=== PATIENT | female | born 1990 | race Caucasian/White ===

== ENCOUNTER 2016-08-22 10:03 | Outpatient (CLI) ==
[2015-08-20 11:33] VITALS: BMI 43.8
[2016-08-22 12:32] LABS: BASOPHILS % (AUTO) 0.4 % (0.0-3.0); EOSINOPHILS # (AUTO) 0.1 K/ul (0.0-0.7); EOSINOPHILS % (AUTO) 1.5 % (0.0-7.0); HEMATOCRIT 43.2 % (37.0-47.0); HEMOGLOBIN 14.1 g/dl (12.0-16.0); IMMATURE GRANULOCYTE % (AUTO) 0.1 % (0.0-5.0); LYMPHOCYTES # (AUTO) 1.7 K/uL (0.60-3.4); LYMPHOCYTES % (AUTO) 23.1 (10.0-50.0); MEAN CORPUSCULAR HEMOGLOBIN 28.2 pg (27.0-31.0); MEAN CORPUSCULAR HGB CONC 32.6 (31.8-35.4); MEAN CORPUSCULAR VOLUME 86.4 fl (81.0-99.0); MONOCYTES # (AUTO) 0.4 K/uL (0.4-2.0); MONOCYTES % (AUTO) 5.7 (0-10); NEUTROPHILS # (AUTO) 5.1 K/ul (2.0-6.9); NEUTROPHILS % (AUTO) 69.2; PLATELET COUNT 160 10^3/uL (140-440); WHITE BLOOD COUNT 7.32 K/ul (4.6-10.2)
[2016-08-22 13:13] LABS: ALBUMIN/GLOBULIN RATIO 1.14; ANION GAP 13.1; BILIRUBIN,TOTAL 0.45 mg/dL (0.00-1.20); BUN/CREATININE RATIO 17.94; CALCIUM 9.6 mg/dL (8.2-10.2); CHOL/HDL RATIO 2.8 (4.5-5.5); CREATININE 0.78 mg/dL (0.60-1.30); POTASSIUM 4.1 mmol/L (3.5-5.10); TOTAL PROTEIN 7.5 g/dL (6.4-8.2)
== END 2016-08-22 10:04 | disposition home or self-care (01) ==
LOC: LAB 10:03
PROVIDERS: ATTEND Nurse Practitioner Family
DX: G43.111 Migraine with aura, intractable, with status migrainosus (principal)
CPT/HCPCS: 36415; 80053; 80061; 84439; 84443; 85025

== ENCOUNTER 2016-08-27 08:53 | Outpatient (CLI) ==
[2015-08-20 11:33] VITALS: BMI 43.8
--- NOTE | 2016-08-27 12:02 | MRI ---
EXAM: MRI brain without IV contrast. DATE: 27 August 2016. HISTORY: Migraine headaches with aura.. TECHNIQUE: Sagittal T1W, axial T2W, axial FLAIR, axial T1W, axial DWI, and coronal T2W GRE sequence s of the brain were obtained using 1.2 Lucy magnet. No IV contrast. COMPARISON: None. FINDINGS: The ventricles, cisterns, and subarachnoid spaces are normal in size and configuration. No midline shift, mass effect or abnormal extra-axial fluid collection is apparent. No acute infarc t, hemorrhage or neoplasm is identified. The butcher - white matter differentiation is normal. The 7t h/8th cranial nerve complexes, cerebellopontine angles, brainstem, and visible cervical spinal cord are normal. There is no cerebellar tonsillar ectopia. The pituitary gland is small in size, with C SF filling part of the pituitary fossa Corpus callosum is normal in size and configuration. Flow v oids are present in the major intracranial arteries and in the dural venous sinuses. No aneurysm, A VM or dural venous sinus thrombosis is apparent. Distortion at the anterior margin of the globe of each eye is likely due to mascara. No other orbit abnormality is identified. The mastoid air cells are unremarkable. There is no acute sinusitis. Minor adenoid tissue prominence is noted. No neck mass or lymphadenopathy is detected. No calvarial neoplasm or acute fracture is evident. IMPRESSIONS: 1. Normal unenhanced brain. No acute infarct, hemorrhage, mass or hydrocephalus. 2. Small pituitary gland. No pituitary lesion. 3. Minor adenoid hypertrophy appears benign.
== END 2016-08-27 08:54 | disposition home or self-care (01) ==
LOC: RAD 08:53
PROVIDERS: ATTEND Nurse Practitioner Family
DX: G43.111 Migraine with aura, intractable, with status migrainosus (principal)

== ENCOUNTER 2017-02-03 14:49 | Outpatient (CLI) ==
[2015-08-20 11:33] VITALS: BMI 43.8
--- NOTE | 2017-02-03 15:21 | DI ---
EXAM: CHEST FRONTAL AND LATERAL VIEWS HISTORY: Cough. COMPARISON: None FINDINGS: Heart size and mediastinal contour within normal limits. No acute infiltrates. Normal vascularity with no pleural fluid or pneumothorax. The bony thorax has no acute finding. IMPRESSION: No acute process.
[2017-02-03 15:22] LABS: BASOPHILS % (AUTO) 0.5 % (0.0-3.0); EOSINOPHILS # (AUTO) 0.1 K/ul (0.0-0.7); EOSINOPHILS % (AUTO) 1.7 % (0.0-7.0); HEMATOCRIT 41.8 % (37.0-47.0); HEMOGLOBIN 14.2 g/dl (12.0-16.0); IMMATURE GRANULOCYTE % (AUTO) 0.4 % (0.0-5.0); LYMPHOCYTES % (AUTO) 26.1 (10.0-50.0); MEAN CORPUSCULAR HEMOGLOBIN 29.4 pg (27.0-31.0); MEAN CORPUSCULAR VOLUME 86.5 fl (81.0-99.0); MONOCYTES # (AUTO) 0.6 K/uL (0.4-2.0); MONOCYTES % (AUTO) 7.5 (0-10); NEUTROPHILS # (AUTO) 4.8 K/ul (2.0-6.9); NEUTROPHILS % (AUTO) 63.8; PLATELET COUNT 146 10^3/uL (140-440); RED BLOOD COUNT 4.83 10^6/ul (4.20-5.40); WHITE BLOOD COUNT 7.55 K/ul (4.6-10.2)
[2017-02-03 16:24] LABS: ALBUMIN 3.9 g/dL (3.4-5.0); ALBUMIN/GLOBULIN RATIO 1.18; ANION GAP 8.8; BILIRUBIN,TOTAL 0.32 mg/dL (0.00-1.20); BUN/CREATININE RATIO 11.84; CALCIUM 9.6 mg/dL (8.2-10.2); CREATININE 0.76 mg/dL (0.60-1.30); POTASSIUM 3.8 mmol/L (3.5-5.10); TOTAL PROTEIN 7.2 g/dL (6.4-8.2)
== END 2017-02-03 14:50 | disposition home or self-care (01) ==
LOC: LAB 14:49
PROVIDERS: ATTEND Nurse Practitioner Family
DX: R05 Cough (principal); R06.02 Shortness of breath
CPT/HCPCS: 36415; 80053; 84439; 84443; 85025; 93005; 93010

== ENCOUNTER 2017-02-12 08:51 | Outpatient (CLI) ==
[2015-08-20 11:33] VITALS: BMI 43.8
== END 2017-02-12 08:52 | disposition home or self-care (01) ==
LOC: CAR 08:51
PROVIDERS: ATTEND Nurse Practitioner Family
DX: R05 Cough (principal); R06.02 Shortness of breath

== ENCOUNTER 2017-04-21 17:37 | Emergency (ER) ==
[2017-04-21 17:46] VITALS: BP 119/82; TEMP 99.3; BMI 37.3
--- NOTE | 2017-04-21 18:17 | ED.PDOC ---
General ED Provider: Dr. CB RODAS JR Chief Complaint: Sore Throat Stated Complaint: onset with mild neck pain on thursday--now has sore throat-- noted white patches on throat yesterday-- dx with strep throat yesterday- -coughed up large amt mucous[ End ]99.3 101 20 97% 119/82 1/10 COMFORTABLE WITH TREATMENT AND NO TESTING THROAT NOT REMARKABLE NO NECK NODES, BUT SORE THROAT LOW GRADE TEMP AND SPOUSE WITH STREP. X 2--gastric sleeve Time Seen by Physician: 18:15 Mode of Arrival: Walk-In Information Source: Patient Exam Limitations: No limitations [facility] and Triage Documentation Reviewed and Agree: No Reviewed sepsis parameters & appropriate labs ordered?: No System Inflammatory Response Syndrome: Not Applicable Sepsis Protocol: For patient's 13 years and over: Temp is 96.8 and below OR 101 and greater Pulse >90 BPM Resp >20/minute Acutely Altered Mental Status Are patient's symptoms suggestive of a new infection, such as: -Pneumonia -Skin, Soft Tissue -Endocarditis -UTI -Bone, Joint Infection -Implantable Device -Acute Abdominal Infection -Wound Infection -Meningitis -Blood Stream Catheter Infection -Unknown System Inflammatory Response Syndrome: Not Applicable Review of Systems - Review Of Systems Constitutional: Reports: Fever, Malaise Eyes: Reports: No symptoms Ears, Nose, Mouth, Throat: Reports: Throat pain Respiratory: Reports: No symptoms Cardiac: Reports: No symptoms GI: Reports: No symptoms : Reports: No symptoms Musculoskeletal: Reports: No symptoms Skin: Reports: No symptoms Neurological: Reports: No symptoms Endocrine: Reports: No symptoms Hematologic/Lymphatic: Reports: No symptoms All Other Systems: Other Past Medical History - Past Medical History Endocrine: Reports: None Cardiovascular: Reports: None Respiratory: Reports: None Hematological: Reports: None Gastrointestinal: Reports: None Genitourinary: Reports: None Neuro/Psych: Reports: None Musculoskeletal: Reports: None Cancer: Reports: None Last Menstrual Period: last week - Surgical History General Surgical History: Reports: Unknown - Family History Family History: Reports: Unknown - Social History Smoking Status: Never smoker Hx Substance Use: No Alcohol Screening: Occasionally Physical Exam - Physical Exam Appearance: Well-appearing Ill-appearing: Mild Pain Distress: Mild Eyes: RANJAN, EOMI, Conjunctiva clear ENT: Ears normal, Nose normal, Oropharynx normal Neck: Supple Respiratory: Airway patent, Breath sounds clear, Breath sounds equal, Respirations nonlabored Cardiovascular: RRR, Pulses normal, No rub, No murmur GI/: Soft, Nontender, No masses, Bowel sounds normal, No Organomegaly Musculoskeletal: Normal strength, ROM intact, No edema, No calf tenderness Skin: Warm, Dry, Normal color Neurological: Sensation intact, Motor intact, Reflexes intact, Cranial nerves intact, Alert, Oriented Psychiatric: Affect appropriate, Mood appropriate Critical Care Note - Critical Care Note Total Time (mins): 0 Course - Course Vital Signs: Temp Pulse Resp BP Pulse Ox 04/21/17 17:43 99.3 F 101 H 20 119/82 97 Departure - Departure Time of Disposition: 18:15 Disposition: HOME SELF-CARE Discharge Problem: Streptococcal sore throat Instructions: Strep Throat (ED) Condition: Good Pt referred to PMD for follow-up: Yes Additional Instructions: WITH SORE THROAT AND FAMILY MEMBER WITH STREP WILL TREAT WITH ANTIBIOTIC BE SURE TO GET PLENTY OF FLUIDS AND AVOID SOCIAL SITUATIONS(WORK) FOR FIRST 24 HOURS OF ANTIBIOTIC KEFLEX FOUR TIMES A DAY FOR TEN DAYS Prescriptions: Cephalexin [Keflex] 500 mg PO QID #40 capsule Fluconazole [Diflucan] 150 mg PO ONCE PRN #1 tablet PRN Reason: YEAST SYMPTOMS Allergies/Adverse Reactions: Allergies No Known Allergies Allergy (Verified 04/21/17 17:47) Home Medications: Ambulatory Orders Multivitamin [Multi-Vitamin Daily] 1 each PO DAILY 02/03/17 Cephalexin [Keflex] 500 mg PO QID #40 capsule 04/21/17 Fluconazole [Diflucan] 150 mg PO ONCE PRN #1 tablet 04/21/17
== END 2017-04-21 18:25 | disposition home or self-care (01) ==
LOC: ED 17:37
DX: J02.0 Streptococcal pharyngitis (principal)
CPT/HCPCS: 99282

== ENCOUNTER 2018-05-06 07:07 | Emergency (ER) ==
[2018-05-06 07:14] VITALS: BP 121/80; TEMP 97.7; BMI 43.8
--- NOTE | 2018-05-06 07:24 | ED.PDOC ---
General ED Provider: Dr. JAMES RINCON Chief Complaint: Sore Throat Stated Complaint: I have a sore throat and LT Ear ache. My children are sick at home, son with Strep and one with RSV. Has cough productive or green colored sputum. Denies chese discomfort. Time Seen by Physician: 07:15 Mode of Arrival: Walk-In Information Source: Patient Primary Care Provider: GRACE GRAHAM Nursing and Triage Documentation Reviewed and Agree: Yes Does patient meet sepsis criteria?: No System Inflammatory Response Syndrome: Not Applicable Sepsis Protocol: For patient's 13 years and over: Temp is 96.8 and below OR 101 and greater Pulse >90 BPM Resp >20/minute Acutely Altered Mental Status Are patient's symptoms suggestive of a new infection, such as: -Pneumonia -Skin, Soft Tissue -Endocarditis -UTI -Bone, Joint Infection -Implantable Device -Acute Abdominal Infection -Wound Infection -Meningitis -Blood Stream Catheter Infection -Unknown EENT Complaint Exam - Ear Complaint/Exam Symptoms Are: Still present Timing: Constant Initial Severity: Moderate Current Severity: Moderate Character: Reports: Aching pain Aggravating: Reports: None Alleviating: Reports: None Associated Signs and Symptoms: Reports: Sore throat. Denies: Ear trauma, Ear swelling, Discharge, Fever, Hearing loss, Bleeding, Headache, URI symptoms, Foreign body sensation, Rash, Pain to external ear, Pain to external face Related History: Denies: Similar Episode Ear Surgical History: None Vesicles to External Pinna: No Vesicles to Tragus: No TMJ Tenderness: None Mastoid Tenderness: None Tragal Tenderness: None External Canal: Normal Material in Canal: Absent: Cerumen, Discharge, Blood Tympanic Membrane: Erythema, Bulging, Dullness Differential Diagnoses: Serous Otitis - Throat Complaint/Exam Onset/Duration: 2 days Symptoms Are: Still present Timimg: Constant Initial Severity: Moderate Current Severity: Moderate Aggravating: Reports: None Alleviating: Reports: None Associated Signs and Symptoms: Reports: Nasal congestion, Ear drainage (Lt ear ache). Denies: Fever, Dysphagia, Drooling, Foreign body sensation, Chills, Cough, Wheezing, Hoarseness, Sinus discomfort, Difficulty breathing, Lethargy, Irritability, Decreased activity, Vomiting, Diarrhea, Decreased hearing Uvula Midline: Yes Itzel-tonsillar Fluctuence: No Scarlatinaform Rash Present: No Lesions: Absent: Lip, Gums, Tongue, Buccal Mucosa, Pharynx Exanthem: Absent: Lip, Gums, Tongue, Buccal Mucosa, Pharynx Vesicles: Absent: Lip, Gums, Tongue, Buccal Mucosa, Pharynx Stridor Present: No Tonsillar Hypertrophy Present: No Tonsillar Exudate Present: No Itzel-tonsillar Swelling Present: No Adenopathy Present: Yes (subtonsillar) Splenomegaly Present: No Differential Diagnoses: Pharyngitis, Tonsillitis, Other (lt otitis) Review of Systems - Review Of Systems Constitutional: Reports: No symptoms Eyes: Reports: No symptoms Ears, Nose, Mouth, Throat: Reports: Ear pain, Throat pain Respiratory: Reports: No symptoms Cardiac: Reports: No symptoms GI: Reports: No symptoms : Reports: No symptoms Musculoskeletal: Reports: No symptoms Skin: Reports: No symptoms Neurological: Reports: No symptoms Endocrine: Reports: No symptoms Hematologic/Lymphatic: Reports: No symptoms All Other Systems: Reviewed and Negative Past Medical History - Past Medical History Endocrine: Reports: None Cardiovascular: Reports: None Respiratory: Reports: None Hematological: Reports: None Gastrointestinal: Reports: None Genitourinary: Reports: None Neuro/Psych: Reports: None Musculoskeletal: Reports: None Cancer: Reports: None Last Menstrual Period: JULY 2017 - Surgical History General Surgical History: Reports: Unknown - Family History Family History: Reports: Unknown - Social History Smoking Status: Never smoker Hx Substance Use: No Alcohol Screening: Occasionally Physical Exam - Physical Exam Appearance: Well-appearing, Obese Ill-appearing: Mild Pain Distress: None Eyes: RANJAN, EOMI, Conjunctiva clear ENT: Erythema (pharynx;lt TM dull and bulging) Respiratory: Airway patent, Breath sounds clear, Breath sounds equal, Respirations nonlabored Cardiovascular: RRR, Pulses normal, No rub, No murmur GI/: Soft, Nontender, No masses, Bowel sounds normal, No Organomegaly Musculoskeletal: Normal strength, ROM intact, No edema, No calf tenderness Skin: Warm, Dry, Normal color Neurological: Sensation intact, Motor intact, Reflexes intact, Cranial nerves intact, Alert, Oriented Psychiatric: Affect appropriate, Mood appropriate Critical Care Note - Critical Care Note Total Time (mins): 0 Course - Course Vital Signs: Temp Pulse Resp BP Pulse Ox 05/06/18 07:09 97.7 F 89 16 121/80 97 Departure - Departure Time of Disposition: 08:05 Disposition: HOME SELF-CARE Discharge Problem: Acute serous otitis media, left ear, Acute pharyngitis Instructions: Pharyngitis (ED), Serous Otitis Media (ED) Condition: Good Pt referred to PMD for follow-up: Yes (1 week ) IPMP verified?: No Additional Instructions: Maintain adequate oral fluids intake Advance diet per tolerance Rinse throat with warm salt water Tylenol for pain or temp above 101 degrees Rest Zithromax as directed See PCP in 5-8 days as needed for follow up Take probiotic daily and or 1 cup of yogurt daily attempting to limit yeast infection Prescriptions: Azithromycin [Zithromax] 250 mg PO DAILY 5 Days #6 tablet Allergies/Adverse Reactions: Allergies No Known Allergies Allergy (Verified 05/06/18 07:09) Home Medications: Ambulatory Orders [id number]/Iron Fum/Folic/Docusate [ 19 Tablet] 1 each PO DAILY 10/12/17 Azithromycin [Zithromax] 250 mg PO DAILY 5 Days #6 tablet 05/06/18 Disposition Discussed With: Patient
== END 2018-05-06 08:21 | disposition home or self-care (01) ==
LOC: ED 07:07
DX: H65.02 Acute serous otitis media, left ear (principal); J02.9 Acute pharyngitis, unspecified
CPT/HCPCS: 87502; 87651; 99283